=== PATIENT | male | born 1980 | race Caucasian/White ===

== ENCOUNTER 2022-09-20 01:22 | Inpatient (IN) | payer MEDICARE, MEDICAID, SELFPAY ==
[2022-09-20 05:07] VITALS: BMI 25.0
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
[2022-09-20 08:00] VITALS: BP 106/65; PULSE 62; TEMP 36.8; O2SAT 97
[2022-09-20] MEDS: Benztropine Mesylate 1 MG TABLET PO ×2 (11:32→20:59)
[2022-09-20] MEDS: Divalproex Sodium 500 MG TABLET.DR PO ×2 (11:32→21:00)
[2022-09-20] MEDS: risperiDONE 1 MG TABLET PO ×2 (11:32→20:59)
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
[2022-09-20] MEDS: Acetaminophen 325 MG TABLET 650 MG PO (12:41)
[2022-09-20 18:00] VITALS: BP 118/78; PULSE 67; TEMP 36.7; O2SAT 100
[2022-09-20] MEDS: hydrOXYzine HCL 25 MG TABLET PO (18:19)
[2022-09-21] MEDS: hydrOXYzine HCL 25 MG TABLET PO ×3 (02:14→19:06)
[2022-09-21] MEDS: Acetaminophen 325 MG TABLET 650 MG PO ×2 (02:14→12:17)
[2022-09-21 08:31] VITALS: BP 97/64; PULSE 54; RESP 18; TEMP 36.6; O2SAT 97
[2022-09-21] MEDS: Benztropine Mesylate 1 MG TABLET PO ×2 (08:34→20:42)
[2022-09-21] MEDS: risperiDONE 1 MG TABLET PO ×2 (08:34→20:42)
[2022-09-21] MEDS: Divalproex Sodium 500 MG TABLET.DR PO ×2 (08:34→20:42)
--- NOTE | 2022-09-21 12:25 | P.PNPSI_ITS ---
Subjective Subjective Date of Service: 09/21/22 Reason For Visit: Schizophrenia Interim History: Patient seen and discussed. He continues to complain of AH with comand to hurt himself and others who he believes are a threat to him. He denies intent and says he would ask for help if he feels overwhelmed by the voices. He is compliant with medications. No side effects. Medication Compliance: Yes Side effects from medications: No Review of Systems Acute medical concerns: No Medical Review of Systems: unchanged Review of Systems Review of Systems Patient has no acute medical complaints Yes all other systems are reviewed and are negative Mental Status Exam Mental Status Exam Patient Appearance: Disheveled Patient Orientation: Person, Place, Time and Situation Level of Consciousness: Awake and Alert Patient Behavior: Appropriate, Cooperative, Passive and Suspicious Mood Description: Suspicious, Anxious and Blunted Affect Description: Withdrawn and Blunted Ability to Follow Directions: Good Speech Pattern: Soft-Spoken Memory Description: Normal for Patient Hallucinations: Auditory Delusions: Paranoid Ideation Thought Process: Illogical Thought Content: positive for Preoccupation Depressive Symptoms: Increased Anxiety Judgement: Fair Diagnostics Vital Signs (24Hr): Vital Signs - 24 hr 09/21/22 08:31 09/21/22 16:10 Temperature 97.8 F 98.0 F Pulse Rate 54 49 L Respiratory Rate 18 Blood Pressure 97/64 124/79 Pulse Oximetry 97 99 Oxygen Delivery Method Room Air BMI result Body Mass Index 25.0 Medications Medications Current Medications Acetaminophen (Acetaminophen 325 Mg Tablet) 650 mg PO Q6H PRN PRN Reason: Headache/Pain Mild Scale (1-3) Last Admin: 09/21/22 12:17 Dose: 650 mg Al Hydroxide/Mg Hydroxide (Magnesium Hydrox/Alum Hydrox 30 Ml Oral.Susp) 30 ml PO Q6H PRN PRN Reason: Heartburn/Nausea Benztropine Mesylate (Benztropine Mesylate 1 Mg Tablet) 1 mg PO BID [facility] Last Admin: 09/21/22 20:42 Dose: 1 mg Divalproex Sodium (Divalproex Sodium 500 Mg Tablet.Dr) 500 mg PO BID [facility] Last Admin: 09/21/22 20:42 Dose: 500 mg Haloperidol (Haloperidol 5 Mg Tablet) 5 mg PO TID PRN PRN Reason: psychosis Last Admin: 09/21/22 19:58 Dose: 5 mg Hydroxyzine HCl (Hydroxyzine Hcl 25 Mg Tablet) 25 mg PO Q6H PRN PRN Reason: Anxiety Last Admin: 09/21/22 19:06 Dose: 25 mg Magnesium Hydroxide (Milk Of Magnesia 30 Ml Oral.Susp) 30 ml PO DAILY PRN PRN Reason: Constipation Nicotine (Nicotine 21 Mg Patch.Td24) 21 mg TRANSDERMA DAILY [facility] Last Admin: 09/21/22 08:34 Dose: Not Given Nicotine Polacrilex (Nicotine Polacrilex 2 Mg Gum) 4 mg BUCCAL Q2H PRN PRN Reason: Nicotine Cravings Nicotine Polacrilex (Nicotine Polacrilex 2 Mg Gum) 2 mg BUCCAL Q2H PRN PRN Reason: Nicotine Cravings Risperidone (Risperidone 1 Mg Tablet) 1 mg PO BID [facility] Last Admin: 09/21/22 20:42 Dose: 1 mg Trazodone HCl (Trazodone Hcl 50 Mg Tablet) 50 mg PO BEDTIME MRX1 PRN PRN Reason: Insomnia Allergies Allergies Allergy/AdvReac Type Severity Reaction Status Date / Time No Known Allergies Allergy Verified 09/20/22 01:31 Assessment & Plan Assessment & Plan (1) Schizoaffective disorder: Status: Acute Code(s): F25.9 - Schizoaffective disorder, unspecified (2) Cocaine use disorder: Status: Acute Code(s): F14.10 - Cocaine abuse, uncomplicated (3) Routine history and physical examination of adult: Status: Acute Code(s): Z00.00 - Encounter for general adult medical examination without abnormal findings Plan Admit to on CV Collateral information. Enciurage milieu treatment. Disposition planning. Restart medications and assess for effectiveness. 09/21: Added Haldol PRN hallucinations. Reason for contiued inpatient stay Substantial Risk for: harm to self, harm to others, inability to function and rapid decompensation Time Spent With Patient Time: Total time managing care of this patient today ____ minutes.
--- NOTE | 2022-09-21 14:46 | P.CONHOSP_ITS ---
History of Present Illness Data of Consult Service Date: 09/21/22 Primary Care Provider: None Physician HPI Reason for consult: Admission H&P Pt is a 41-year-old male with a PMH significant for polysubstance use disorder, schizoaffective disorder, and depression who is seen today for an admission history and physical to M5 unit. Pt denies any acute medical complaint at this time. No chest pain/pressure, palpitations. Denies shortness of breath. No fever, chills, nausea, vomiting, abdominal pain. No headache, changes to vision, numbness or tingling extremities. Review of Systems Review of Systems: Patient has no acute medical complaints Yes all other systems are reviewed and are negative [facility] Medical History Gallstones Social History Household Members: None Housing: Homeless Do you presently have visiting nurse or other home services: No Patient Tobacco Use Status: Current everyday Tobacco user Tobacco use type: Cigarette Smoked in Last 30 Days: Yes e-Cigarette/Vaping Use: Never Used Patient Interested in Nicotine Replacement: Yes Patient Given Instructions on How to Stop Smoking: Yes Date Education Initiated: 09/20/22 Second Hand Smoke Exposure: No Use of substances other than those prescribed or required for medical reasons: Yes Substance Use Type: Crack/Cocaine Substance Use Frequency: Daily Last Used Substance: Just Prior to Admission Currently Displaying Signs/Symptoms of Drug Intoxication Withdrawal: No Any prior treatment program specific to substance use: No Do you feel safe in your current relationship?: No Current Relationship Is there a partner from a previous relationship who is making you feel unsafe now?: No Are you made to feel afraid or neglected: No Advance Directives: No Advance Directives Information Provided: No Do you have thoughts of harming others: None Do you have a plan to hurt others: No Plan Recently lost weight without trying: No Eating poorly because of decreased appetite: No Nutrition Risks: No Nutritional Risk Poor oral hygiene: No Meds Allergies Allergy/AdvReac Type Severity Reaction Status Date / Time No Known Allergies Allergy Verified 09/20/22 01:31 Active Medications: Current Medications Acetaminophen (Acetaminophen 325 Mg Tablet) 650 mg PO Q6H PRN PRN Reason: Headache/Pain Mild Scale (1-3) Last Admin: 09/21/22 12:17 Dose: 650 mg Al Hydroxide/Mg Hydroxide (Magnesium Hydrox/Alum Hydrox 30 Ml Oral.Susp) 30 ml PO Q6H PRN PRN Reason: Heartburn/Nausea Benztropine Mesylate (Benztropine Mesylate 1 Mg Tablet) 1 mg PO BID COUNTS INCLUDE 234 BEDS AT [facility] Last Admin: 09/21/22 08:34 Dose: 1 mg Divalproex Sodium (Divalproex Sodium 500 Mg Tablet.Dr) 500 mg PO BID COUNTS INCLUDE 234 BEDS AT THE [facility] Last Admin: 09/21/22 08:34 Dose: 500 mg Hydroxyzine HCl (Hydroxyzine Hcl 25 Mg Tablet) 25 mg PO Q6H PRN PRN Reason: Anxiety Last Admin: 09/21/22 12:17 Dose: 25 mg Magnesium Hydroxide (Milk Of Magnesia 30 Ml Oral.Susp) 30 ml PO DAILY PRN PRN Reason: Constipation Nicotine (Nicotine 21 Mg Patch.Td24) 21 mg TRANSDERMA DAILY COUNTS INCLUDE 234 BEDS AT THE [facility] Last Admin: 09/21/22 08:34 Dose: Not Given Nicotine Polacrilex (Nicotine Polacrilex 2 Mg Gum) 4 mg BUCCAL Q2H PRN PRN Reason: Nicotine Cravings Nicotine Polacrilex (Nicotine Polacrilex 2 Mg Gum) 2 mg BUCCAL Q2H PRN PRN Reason: Nicotine Cravings Risperidone (Risperidone 1 Mg Tablet) 1 mg PO BID COUNTS INCLUDE 234 BEDS AT THE [facility] Last Admin: 09/21/22 08:34 Dose: 1 mg Trazodone HCl (Trazodone Hcl 50 Mg Tablet) 50 mg PO BEDTIME MRX1 PRN PRN Reason: Insomnia Home Medications Medication Instructions Recorded Confirmed Last Taken Type benztropine 1 mg tablet 1 mg PO BID 09/20/22 09/20/22 09/19/22 History divalproex 500 mg tablet,delayed 500 mg PO BID 09/20/22 09/20/22 09/19/22 History release nicotine (polacrilex) 4 mg gum 4 mg buccal Q2H PRN Nicotine 09/20/22 09/20/22 Unknown History Cravings nicotine 21 mg/24 hr daily 1 patch transdermal DAILY 09/20/22 09/20/22 Unknown History transdermal patch risperidone 1 mg tablet 1 mg PO BEDTIME 09/20/22 09/20/22 09/19/22 History Physical Exam Vital Signs and Narrative: Vital Signs: Last Vital Signs Temp 97.8 F 09/21/22 08:31 Pulse 54 09/21/22 08:31 Resp 18 09/21/22 08:31 BP 97/64 09/21/22 08:31 Pulse Ox 97 09/21/22 08:31 O2 Del Method 09/20/22 18:00 BMI result Body Mass Index 25.0 General: AOx3, no acute distress Resp: CTA bilaterally CVS: S1, S2, RRR GI: +BS, NT, no distention Skin: No rash Neuro: Cranial nerves II-XII grossly intact bilaterally. Motor grossly intact bilaterally Extremities: No edema Psych: Appropriate affect Assessment and Plan (1) Routine history and physical examination of adult: Status: Acute Plan Pt is a 41-year-old male with a PMH significant for polysubstance use disorder, schizoaffective disorder, and depression who is seen today for an admission history and physical to M5 unit. Pt denies any acute medical complaint at this time. Mental health Plan as per psychiatry team Thank you for allowing us to participate in the care of this patient. Signing off at this time. Please contact us again if there are any acute questions or concerns. Time Spent With Patient Time: Total time managing care of this patient today ____ minutes.
[2022-09-21 16:10] VITALS: BP 124/79; PULSE 49; TEMP 36.7; O2SAT 99
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
[2022-09-21] MEDS: HaloperidoL 5 MG TABLET PO (19:58)
[2022-09-22 09:34] VITALS: BP 92/53; PULSE 56; RESP 16; TEMP 36.4; O2SAT 99
[2022-09-22] MEDS: Benztropine Mesylate 1 MG TABLET PO ×2 (09:55→22:27)
[2022-09-22] MEDS: Divalproex Sodium 500 MG TABLET.DR PO ×2 (09:55→22:27)
[2022-09-22] MEDS: risperiDONE 1 MG TABLET PO (09:55)
--- NOTE | 2022-09-22 10:35 | P.PNPSI_ITS ---
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 He says psychiatric medication can help and shares that on Haldol dec, Risperdal and Depakote auditory hallucinations nearly resolve. Patient says he got Haldol deck a week ago. He says he ends up getting off medications because he relapses and is homeless making it hard to follow-up. Patient says he would like to get into a CSS for crack cocaine use. Currently he denies any SI or HI and paranoid thinking is lessening. He says the voices remain but are getting better with Risperdal. He asks for to be increased to his home dose of 2 mg b.i.d. Mental Status Exam Mental Status Exam Narrative: Pt is alert and oriented; behavior is cooperative, friendly and calm; patient is not in distress; dressed in casual attire with unkempt hair and marginal hygiene; mood is described as ok and affect congruent, somewhat blank; eye contact appropriate; Speech is normal rate, volume and prosody and not pressured; possibly mild speech impediment present; some psychomotor retardation present; thought process is organized and goal directed; Thought content is on dealing with AH, symptoms and aftercare; otherwise pertinent to relevant topics and with some remaining but attenuated paranoid ideations; denies any SI/HI. AH remains but lessening. Patients insight and judgment impaired but improving. Diagnostics Vital Signs (24Hr): Vital Signs - 24 hr 09/21/22 16:10 09/22/22 09:34 Temperature 98.0 F 97.6 F Pulse Rate 49 L 56 Respiratory Rate 16 Blood Pressure 124/79 92/53 L Pulse Oximetry 99 99 Oxygen Delivery Method Room Air Room Air BMI result Body Mass Index 25.0 Medications Medications Current Medications Acetaminophen (Acetaminophen 325 Mg Tablet) 650 mg PO Q6H PRN PRN Reason: Headache/Pain Mild Scale (1-3) Last Admin: 09/21/22 12:17 Dose: 650 mg Al Hydroxide/Mg Hydroxide (Magnesium Hydrox/Alum Hydrox 30 Ml Oral.Susp) 30 ml PO Q6H PRN PRN Reason: Heartburn/Nausea Benztropine Mesylate (Benztropine Mesylate 1 Mg Tablet) 1 mg PO BID [facility] Last Admin: 09/22/22 09:55 Dose: 1 mg Divalproex Sodium (Divalproex Sodium 500 Mg Tablet.Dr) 500 mg PO BID [facility] Last Admin: 09/22/22 09:55 Dose: 500 mg Haloperidol (Haloperidol 5 Mg Tablet) 5 mg PO TID PRN PRN Reason: psychosis Last Admin: 09/21/22 19:58 Dose: 5 mg Hydroxyzine HCl (Hydroxyzine Hcl 25 Mg Tablet) 25 mg PO Q6H PRN PRN Reason: Anxiety Last Admin: 09/21/22 19:06 Dose: 25 mg Magnesium Hydroxide (Milk Of Magnesia 30 Ml Oral.Susp) 30 ml PO DAILY PRN PRN Reason: Constipation Nicotine (Nicotine 21 Mg Patch.Td24) 21 mg TRANSDERMA DAILY [facility] Last Admin: 09/22/22 09:55 Dose: Not Given Nicotine Polacrilex (Nicotine Polacrilex 2 Mg Gum) 4 mg BUCCAL Q2H PRN PRN Reason: Nicotine Cravings Nicotine Polacrilex (Nicotine Polacrilex 2 Mg Gum) 2 mg BUCCAL Q2H PRN PRN Reason: Nicotine Cravings Risperidone (Risperidone 1 Mg Tablet) 1 mg PO BID [facility] Last Admin: 09/22/22 09:55 Dose: 1 mg Trazodone HCl (Trazodone Hcl 50 Mg Tablet) 50 mg PO BEDTIME MRX1 PRN PRN Reason: Insomnia Allergies Allergies Allergy/AdvReac Type Severity Reaction Status Date / Time No Known Allergies Allergy Verified 09/20/22 01:31 Assessment & Plan Assessment & Plan (1) Schizoaffective disorder: Status: Acute Code(s): F25.9 - Schizoaffective disorder, unspecified (2) Cocaine use disorder: Status: Acute Code(s): F14.10 - Cocaine abuse, uncomplicated (3) Routine history and physical examination of adult: Status: Acute Code(s): Z00.00 - Encounter for general adult medical examination without abnormal findings Plan Patient is a 41-year-old man with history of schizophrenia and crack cocaine addiction presents for paranoid ideations and auditory hallucinations in the face of relapse and, off medications Hospital course: 09/21: Added Haldol PRN hallucinations. 09/22 patient reports that now having started Risperdal and Depakote, auditory hallucinations and paranoid thinking is lessening; he says he has been most stable on Haldol dec, Risperdal 2 mg b.i.d. and Depakote 500 mg b.i.d.. Patient asking for CSS PLAN: CV q15 min checks Increased Risperal 2mg BID (does not want [place]) continue Depakote 500mg BID -will get labs Continue congentin 1mg BID (says he needs this dose) Haldol Dec 100mg qmonth spread out over 2-3 days (last received 09/16/22) clonidine 0.1mg Q4h prn anxiety increased hydrozyzine to 50mg prn Continue to monitor and apply medication management Social work to help with dispo planning, possible CSS Patient educated on: diagnosis, medication risk/benefits, substance abuse and therapeutic strategies Informed Consent: understands Reason for contiued inpatient stay Substantial Risk for: rapid decompensation Time Spent With Patient Time: Total time managing care of this patient today ____ minutes.
[2022-09-22] MEDS: hydrOXYzine HCL 25 MG TABLET PO (13:51)
[2022-09-22] MEDS: cloNIDine HCL 0.1 MG TABLET PO (16:40)
[2022-09-22 16:41] VITALS: BP 114/72; PULSE 64; TEMP 36.2; O2SAT 99
[2022-09-22] MEDS: risperiDONE 2 MG TABLET PO (22:27)
[2022-09-23 08:22] VITALS: BP 114/64; PULSE 55; RESP 16; TEMP 36.8; O2SAT 97
[2022-09-23] MEDS: Benztropine Mesylate 1 MG TABLET PO ×2 (08:41→20:27)
[2022-09-23] MEDS: risperiDONE 2 MG TABLET PO ×2 (08:41→20:27)
[2022-09-23] MEDS: Divalproex Sodium 500 MG TABLET.DR PO ×2 (08:41→20:28)
[2022-09-23 08:52] LABS: Valproate 47.7 mcg/mL (50.0-100.0)
[2022-09-23 08:55] LABS: Alanine Aminotransferase 31 U/L (0-40); Albumin Level 3.5 g/dL (3.5-5.0); Alkaline Phosphatase 37 U/L (39-117); Ammonia 51 umol/L (13-55); Aspartate Amino Transferase 17 U/L (5-37); Bilirubin Direct 0.2 mg/dL (0.0-0.5); Bilirubin Total 0.4 mg/dL (0.0-1.0); Total Protein 5.9 g/dL (6.5-8.0)
--- NOTE | 2022-09-23 10:39 | P.PNPSI_ITS ---
Subjective Subjective Date of Service: 09/23/22 Reason For Visit: Schizophrenia Interim History: met with patient; discussed in teams; reviewed notes/Labs from [facility] ED pt says he's doing a little better; AH remain but remain lessened. However he still feels depressed but not much SI. He says HI lingers but much less; he denies it's directed at anyone specific and implies it's from [facility], but he's vague about it. Pt says he's tolerating increase in med dosing and that while it was hard to fall asleep, once he did, he slept better. Mental Status Exam Mental Status Exam Narrative: Pt is alert and oriented; behavior is cooperative, friendly and calm; patient is not in distress; dressed in casual attire with unkempt hair and marginal hygiene; mood is described as ok and affect congruent, somewhat blank; eye contact appropriate; Speech is normal rate, volume and prosody and not pressured; possibly mild speech impediment present; some psychomotor retardation present; thought process is organized and goal directed; Thought content is on dealing with AH, symptoms and aftercare; otherwise pertinent to relevant topics and with some remaining but attenuated paranoid ideations; denies any SI/HI. AH remains but lessening. Remains internally preoccupied. Patients insight and judgment impaired but improving. Diagnostics Vital Signs (24Hr): Vital Signs - 24 hr 09/22/22 16:41 09/23/22 08:22 Temperature 97.2 F 98.3 F Pulse Rate 64 55 Respiratory Rate 16 Blood Pressure 114/72 114/64 Pulse Oximetry 99 97 Oxygen Delivery Method Room Air Room Air BMI result Body Mass Index 25.0 Labs Labs: Laboratory Results - last 48 hr 09/23/22 09/23/22 09/23/22 08:24 08:24 08:24 Total Bilirubin 0.4 Direct Bilirubin 0.2 AST 17 ALT 31 Alkaline Phosphatase 37 L Ammonia 51 Total Protein 5.9 L Albumin 3.5 Valproic Acid 47.7 L Medications Medications Current Medications Acetaminophen (Acetaminophen 325 Mg Tablet) 650 mg PO Q6H PRN PRN Reason: Headache/Pain Mild Scale (1-3) Last Admin: 09/21/22 12:17 Dose: 650 mg Al Hydroxide/Mg Hydroxide (Magnesium Hydrox/Alum Hydrox 30 Ml Oral.Susp) 30 ml PO Q6H PRN PRN Reason: Heartburn/Nausea Benztropine Mesylate (Benztropine Mesylate 1 Mg Tablet) 1 mg PO BID [facility] Last Admin: 09/23/22 08:41 Dose: 1 mg Clonidine HCl (Clonidine Hcl 0.1 Mg Tablet) 0.1 mg PO Q4H PRN; Protocol PRN Reason: anxiety Last Admin: 09/22/22 16:40 Dose: 0.1 mg Divalproex Sodium (Divalproex Sodium 500 Mg Tablet.Dr) 500 mg PO BID [facility] Last Admin: 09/23/22 08:41 Dose: 500 mg Haloperidol (Haloperidol 5 Mg Tablet) 5 mg PO TID PRN PRN Reason: psychosis Last Admin: 09/21/22 19:58 Dose: 5 mg Hydroxyzine HCl (Hydroxyzine Hcl 50 Mg Tablet) 50 mg PO Q6H PRN PRN Reason: Anxiety Magnesium Hydroxide (Milk Of Magnesia 30 Ml Oral.Susp) 30 ml PO DAILY PRN PRN Reason: Constipation Nicotine (Nicotine 21 Mg Patch.Td24) 21 mg TRANSDERMA DAILY [facility] Last Admin: 09/23/22 08:41 Dose: Not Given Nicotine Polacrilex (Nicotine Polacrilex 2 Mg Gum) 4 mg BUCCAL Q2H PRN PRN Reason: Nicotine Cravings Nicotine Polacrilex (Nicotine Polacrilex 2 Mg Gum) 2 mg BUCCAL Q2H PRN PRN Reason: Nicotine Cravings Risperidone (Risperidone 2 Mg Tablet) 2 mg PO BID [facility] Last Admin: 09/23/22 08:41 Dose: 2 mg Trazodone HCl (Trazodone Hcl 50 Mg Tablet) 50 mg PO BEDTIME MRX1 PRN PRN Reason: Insomnia Allergies Allergies Allergy/AdvReac Type Severity Reaction Status Date / Time No Known Allergies Allergy Verified 09/20/22 01:31 Assessment & Plan Assessment & Plan (1) Schizoaffective disorder: Status: Acute Code(s): F25.9 - Schizoaffective disorder, unspecified (2) Cocaine use disorder: Status: Acute Code(s): F14.10 - Cocaine abuse, uncomplicated (3) Routine history and physical examination of adult: Status: Acute Code(s): Z00.00 - Encounter for general adult medical examination without abnormal findings Plan Patient is a 41-year-old man with history of schizophrenia and crack cocaine addiction presents for paranoid ideations and auditory hallucinations in the face of relapse and, off medications Hospital course: 09/21: Added Haldol PRN hallucinations. 09/22 patient reports that now having started Risperdal and Depakote, auditory hallucinations and paranoid thinking is lessening; he says he has been most stable on Haldol dec, Risperdal 2 mg b.i.d. and Depakote 500 mg b.i.d.. Patient asking for CSS 09/23 patient remains with psychotic symptoms but SI and HI, mostly just due to command auditory hallucinations are lessening. PLAN: CV q15 min checks Increased Risperal 2mg BID (does not want SPRAGUE) continue Depakote 500mg BID -will get labs Continue congentin 1mg BID (says he needs this dose) Haldol Dec 100mg qmonth spread out over 2-3 days (last received 09/16/22) clonidine 0.1mg Q4h prn anxiety increased hydrozyzine to 50mg prn Continue to monitor and apply medication management Social work to help with dispo planning, possible CSS Patient educated on: diagnosis and medication risk/benefits Informed Consent: understands and further education needed Reason for contiued inpatient stay Substantial Risk for: rapid decompensation Time Spent With Patient Time: Total time managing care of this patient today ____ minutes.
[2022-09-23] MEDS: cloNIDine HCL 0.1 MG TABLET PO (13:39)
[2022-09-23 16:18] VITALS: BP 103/57; PULSE 56; TEMP 36.6; O2SAT 99
[2022-09-23] MEDS: HaloperidoL 5 MG TABLET PO (18:51)
[2022-09-24 08:16] VITALS: BP 108/71; PULSE 62; RESP 16; TEMP 36.7; O2SAT 98
[2022-09-24] MEDS: risperiDONE 2 MG TABLET PO ×2 (08:25→19:41)
[2022-09-24] MEDS: Divalproex Sodium 500 MG TABLET.DR PO ×2 (08:25→19:41)
[2022-09-24] MEDS: Benztropine Mesylate 1 MG TABLET PO ×2 (08:25→19:41)
[2022-09-24] MEDS: cloNIDine HCL 0.1 MG TABLET PO ×2 (09:51→19:42)
[2022-09-24 09:54] VITALS: BP 106/61
[2022-09-24] MEDS: hydrOXYzine HCL 50 MG TABLET PO (13:29)
[2022-09-24 17:03] VITALS: BP 118/73; PULSE 59; RESP 16; TEMP 36.6; O2SAT 100
--- NOTE | 2022-09-24 18:21 | HO.PSYCHPN ---
Subjective Subjective Date of Service: 09/24/22 Reason For Visit: Schizophrenia Interim History: Met with patient; discussed in teams Patient reports that the auditory hallucinations are still there but they continue to get better. He says usually takes about a week for them to resolve. Discussed medication management further and patient agrees to long-acting injectable of Invega Sustenna; discussed risks of being on 2 antipsychotics however he accepts that he has been on to which makes him stable and agrees to continue doing so. Patient said SI and HI are really just due to command auditory hallucinations which he says at this point are only annoying. He denies any intent or plans. Discussed aftercare options and patient said that he really rather not go to a CSS and prefers to go back to his correction and get treatment there, feeling well cared for by staff. Mental Status Exam Mental Status Exam Narrative: Pt is alert and oriented; behavior is cooperative, friendly and calm; patient is not in distress; dressed in casual attire with unkempt hair and marginal hygiene; mood is described as ok and affect congruent, more natural expressive; eye contact appropriate; Speech is normal rate, volume and prosody and not pressured; possibly mild speech impediment present; no psychomotor present; thought process is organized and goal directed; Thought content is on dealing with AH, symptoms and aftercare; otherwise pertinent to relevant topics and with some remaining but attenuated paranoid ideations; denies any SI/HI. AH remains but lessening. Remains internally preoccupied. Patients insight and judgment are fair. Diagnostics Vital Signs (24Hr): Vital Signs - 24 hr 09/24/22 08:16 09/24/22 09:54 09/24/22 17:03 Temperature 98.0 F 97.8 F Pulse Rate 62 59 Respiratory Rate 16 16 Blood Pressure 108/71 106/61 118/73 Pulse Oximetry 98 100 Oxygen Delivery Method Room Air Room Air BMI result Body Mass Index 25.0 Labs Labs: Laboratory Results - last 48 hr 09/23/22 09/23/22 09/23/22 08:24 08:24 08:24 Total Bilirubin 0.4 Direct Bilirubin 0.2 AST 17 ALT 31 Alkaline Phosphatase 37 L Ammonia 51 Total Protein 5.9 L Albumin 3.5 Valproic Acid 47.7 L Medications Medications Current Medications Acetaminophen (Acetaminophen 325 Mg Tablet) 650 mg PO Q6H PRN PRN Reason: Headache/Pain Mild Scale (1-3) Last Admin: 09/21/22 12:17 Dose: 650 mg Al Hydroxide/Mg Hydroxide (Magnesium Hydrox/Alum Hydrox 30 Ml Oral.Susp) 30 ml PO Q6H PRN PRN Reason: Heartburn/Nausea Benztropine Mesylate (Benztropine Mesylate 1 Mg Tablet) 1 mg PO BID [facility] Last Admin: 09/24/22 08:25 Dose: 1 mg Clonidine HCl (Clonidine Hcl 0.1 Mg Tablet) 0.1 mg PO Q4H PRN; Protocol PRN Reason: anxiety Last Admin: 09/24/22 09:51 Dose: 0.1 mg Divalproex Sodium (Divalproex Sodium 500 Mg Tablet.Dr) 500 mg PO BID [facility] Last Admin: 09/24/22 08:25 Dose: 500 mg Haloperidol (Haloperidol 5 Mg Tablet) 5 mg PO TID PRN PRN Reason: psychosis Last Admin: 09/23/22 18:51 Dose: 5 mg Hydroxyzine HCl (Hydroxyzine Hcl 50 Mg Tablet) 50 mg PO Q6H PRN PRN Reason: Anxiety Last Admin: 09/24/22 13:29 Dose: 50 mg Magnesium Hydroxide (Milk Of Magnesia 30 Ml Oral.Susp) 30 ml PO DAILY PRN PRN Reason: Constipation Nicotine (Nicotine 21 Mg Patch.Td24) 21 mg TRANSDERMA DAILY [facility] Last Admin: 09/24/22 09:12 Dose: Not Given Nicotine Polacrilex (Nicotine Polacrilex 2 Mg Gum) 4 mg BUCCAL Q2H PRN PRN Reason: Nicotine Cravings Nicotine Polacrilex (Nicotine Polacrilex 2 Mg Gum) 2 mg BUCCAL Q2H PRN PRN Reason: Nicotine Cravings Risperidone (Risperidone 2 Mg Tablet) 2 mg PO BID [facility] Last Admin: 09/24/22 08:25 Dose: 2 mg Trazodone HCl (Trazodone Hcl 50 Mg Tablet) 50 mg PO BEDTIME MRX1 PRN PRN Reason: Insomnia Allergies Allergies Allergy/AdvReac Type Severity Reaction Status Date / Time No Known Allergies Allergy Verified 09/20/22 01:31 Assessment & Plan Assessment & Plan (1) Schizoaffective disorder: Status: Acute Code(s): F25.9 - Schizoaffective disorder, unspecified (2) Cocaine use disorder: Status: Acute Code(s): F14.10 - Cocaine abuse, uncomplicated (3) Routine history and physical examination of adult: Status: Acute Code(s): Z00.00 - Encounter for general adult medical examination without abnormal findings Plan Patient is a 41-year-old man with history of schizophrenia and crack cocaine addiction presents for paranoid ideations and auditory hallucinations in the face of relapse and, off medications Hospital course: 09/21: Added Haldol PRN hallucinations. 09/22 patient reports that now having started Risperdal and Depakote, auditory hallucinations and paranoid thinking is lessening; he says he has been most stable on Haldol dec, Risperdal 2 mg b.i.d. and Depakote 500 mg b.i.d.. Patient asking for CSS 09/23 patient remains with psychotic symptoms but SI and HI, mostly just due to command auditory hallucinations are lessening. 09/24 patient continues to have symptoms but is says again there lessening and have reduced just to an annoying level; he denies any SI or HI. He agrees to long-acting injectable of Invega Sustenna, saying he did understand about it earlier; patient said he would like to go back to a correction since he likes the staff there is; he volunteers that is already signed up for [facility]. Patient is progressing back to baseline. He is back on his medications including long-acting injectable which will significantly increase adherence. Patient remains with good behavior and impulse control appropriate with peers and staff. He approaching baseline and If he remains stable will proceed with discharge planning. PLAN: CV q15 min checks START Invega Sustenna 234 mg 1 time dose on to Continue Haldol Decanoate 100 mg Q monthly in divided doses over 2 day.) Risperal 2mg BID continue Depakote 500mg BID -will get labs Continue congentin 1mg BID (says he needs this dose) Haldol Dec 100mg qmonth spread out over 2-3 days (last received 09/16/22) clonidine 0.1mg Q4h prn anxiety increased hydrozyzine to 50mg prn Continue to monitor and apply medication management Social work to help with dispo planning, back to correction Patient educated on: diagnosis and medication risk/benefits Informed Consent: understands and further education needed Reason for contiued inpatient stay Substantial Risk for: rapid decompensation and med/psych decompensation Time Spent With Patient Time: Total time managing care of this patient today ____ minutes.
[2022-09-24 19:40] VITALS: BP 122/74; PULSE 66
[2022-09-25] MEDS: Divalproex Sodium 500 MG TABLET.DR PO ×2 (08:36→20:35)
[2022-09-25] MEDS: risperiDONE 2 MG TABLET PO ×2 (08:37→20:35)
[2022-09-25] MEDS: Benztropine Mesylate 1 MG TABLET PO ×2 (08:37→20:35)
[2022-09-25 09:05] VITALS: BP 102/62; PULSE 68; RESP 18; TEMP 36.9; O2SAT 98
[2022-09-25] MEDS: Paliperidone Palmitate 234 MG/1.5 ML SYRINGE IM (12:48)
--- NOTE | 2022-09-25 15:35 | HO.PSYCHPN ---
Subjective Subjective Date of Service: 09/25/22 Reason For Visit: Schizophrenia Interim History: Met with patient; discussed in teams Patient with noticeably brighter affect and more naturally expressive; patient is out and about more in the milieu, interacting appropriately with peers and staff and demonstrating good behavioral and impulse control.. He reports continued auditory hallucinations but they remain significantly lowered and more able to be ignored. No SI or HI. Mood is better. Patient appreciative of long-acting injectable Invega Sustenna since he struggles with relapse and remaining adherent with medications hoping this will make his stability more long-lasting. Patient and song writer reviewed all medications and patient ask questions and agrees to continue regimen; song writer shared that because patient has been getting his Haldol Decanoate at different hospitals, it is unclear what consistent monthly dose he gets but that this can be worked out as an outpatient.. Patient is more hopeful and feels confident and staff at the longterm and with [facility]; he shares that he is on schedule to get his own apartment in a few months as well. Patient expresses gratitude for help received on the unit. Mental Status Exam Mental Status Exam Narrative: Pt is alert and oriented; behavior is cooperative, friendly and calm; patient is not in distress; dressed in casual attire, well groomed, clean shaven, good hygiene; mood is described as ok and affect congruent, more natural expressive; eye contact appropriate; Speech is normal rate, volume and prosody and not pressured; possibly mild speech impediment present; no psychomotor retardation present; thought process is organized and goal directed; Thought content is on dealing with AH, symptoms and aftercare; otherwise pertinent to relevant topics and and no paranoid ideations; denies any SI/HI. AH remains but lessening and tolerable and it is no longer obvious if pt is internally pre-occupied. Patients insight and judgment are fair. Diagnostics Vital Signs (24Hr): Vital Signs - 24 hr 09/24/22 17:03 09/24/22 19:40 09/25/22 09:05 Temperature 97.8 F 98.4 F Pulse Rate 59 66 68 Respiratory Rate 16 18 Blood Pressure 118/73 122/74 102/62 Pulse Oximetry 100 98 Oxygen Delivery Method Room Air Room Air BMI result Body Mass Index 25.0 Medications Medications Current Medications Acetaminophen (Acetaminophen 325 Mg Tablet) 650 mg PO Q6H PRN PRN Reason: Headache/Pain Mild Scale (1-3) Last Admin: 09/21/22 12:17 Dose: 650 mg Al Hydroxide/Mg Hydroxide (Magnesium Hydrox/Alum Hydrox 30 Ml Oral.Susp) 30 ml PO Q6H PRN PRN Reason: Heartburn/Nausea Benztropine Mesylate (Benztropine Mesylate 1 Mg Tablet) 1 mg PO BID [facility] Last Admin: 09/25/22 08:37 Dose: 1 mg Clonidine HCl (Clonidine Hcl 0.1 Mg Tablet) 0.1 mg PO Q4H PRN; Protocol PRN Reason: anxiety Last Admin: 09/24/22 19:42 Dose: 0.1 mg Divalproex Sodium (Divalproex Sodium 500 Mg Tablet.Dr) 500 mg PO BID [facility] Last Admin: 09/25/22 08:36 Dose: 500 mg Haloperidol (Haloperidol 5 Mg Tablet) 5 mg PO TID PRN PRN Reason: psychosis Last Admin: 09/23/22 18:51 Dose: 5 mg Hydroxyzine HCl (Hydroxyzine Hcl 50 Mg Tablet) 50 mg PO Q6H PRN PRN Reason: Anxiety Last Admin: 09/24/22 13:29 Dose: 50 mg Magnesium Hydroxide (Milk Of Magnesia 30 Ml Oral.Susp) 30 ml PO DAILY PRN PRN Reason: Constipation Nicotine (Nicotine 21 Mg Patch.Td24) 21 mg TRANSDERMA DAILY [facility] Last Admin: 09/25/22 08:57 Dose: Not Given Nicotine Polacrilex (Nicotine Polacrilex 2 Mg Gum) 4 mg BUCCAL Q2H PRN PRN Reason: Nicotine Cravings Nicotine Polacrilex (Nicotine Polacrilex 2 Mg Gum) 2 mg BUCCAL Q2H PRN PRN Reason: Nicotine Cravings Risperidone (Risperidone 2 Mg Tablet) 2 mg PO BID [facility] Last Admin: 09/25/22 08:37 Dose: 2 mg Trazodone HCl (Trazodone Hcl 50 Mg Tablet) 50 mg PO BEDTIME MRX1 PRN PRN Reason: Insomnia Allergies Allergies Allergy/AdvReac Type Severity Reaction Status Date / Time No Known Allergies Allergy Verified 09/20/22 01:31 Assessment & Plan Assessment & Plan (1) Schizoaffective disorder: Status: Acute Code(s): F25.9 - Schizoaffective disorder, unspecified (2) Cocaine use disorder: Status: Acute Code(s): F14.10 - Cocaine abuse, uncomplicated (3) Routine history and physical examination of adult: Status: Acute Code(s): Z00.00 - Encounter for general adult medical examination without abnormal findings Plan Patient is a 41-year-old man with history of schizophrenia and crack cocaine addiction presents for paranoid ideations and auditory hallucinations in the face of relapse and, off medications Hospital course: 09/21: Added Haldol PRN hallucinations. 09/22 patient reports that now having started Risperdal and Depakote, auditory hallucinations and paranoid thinking is lessening; he says he has been most stable on Haldol dec, Risperdal 2 mg b.i.d. and Depakote 500 mg b.i.d.. Patient asking for CSS 09/23 patient remains with psychotic symptoms but SI and HI, mostly just due to command auditory hallucinations are lessening. 09/24 patient continues to have symptoms but is says again there lessening and have reduced just to an annoying level; he denies any SI or HI. He agrees to long-acting injectable of Invega Sustenna, saying he did understand about it earlier; patient said he would like to go back to a longterm since he likes the staff there is; he volunteers that is already signed up for [facility]. Patient is progressing back to baseline. He is back on his medications including long-acting injectable which will significantly increase adherence. Patient remains with good behavior and impulse control appropriate with peers and staff. He approaching baseline and If he remains stable will proceed with discharge planning. 09/25 Patient with noticeably brighter affect and more naturally expressive; patient is out and about more in the milieu, interacting appropriately with peers and staff and demonstrating good behavioral and impulse control.. He reports continued auditory hallucinations but they remain significantly lowered and more able to be ignored. No SI or HI. Mood is better. Patient appreciative of long-acting injectable Invega Sustenna since he struggles with relapse and remaining adherent with medications hoping this will make his stability more long-lasting. Patient and song writer reviewed all medications and patient ask questions and agrees to continue regimen; song writer shared that because patient has been getting his Haldol Decanoate at different hospitals, it is unclear what consistent monthly dose he gets but that this can be worked out as an outpatient.. Patient is more hopeful and feels confident and staff at the longterm and with [facility]; he shares that he is on schedule to get his own apartment in a few months as well. Patient expresses gratitude for help received on the unit. -patient has been doing well, stable, in good mood, with lessening psychotic symptoms and steadily progressing towards baseline. While AH remain He does not have any SI or HI and he has good insight that AH is simply due to his mind playing tricks on him from psychiatric illness; patient is future oriented and though returning to a longterm, feels well treated and helped by staff there. Patient has remained in good behavioral and impulse control throughout his time in the unit. While he remains vulnerable to relapse and dysregulation, these are chronic issues that will not resolve with longer stay on inpatient unit. He is not in imminent risk for harm to self or others and appropriate to continue treatment in the community. PLAN: CV q15 min checks Received Invega Sustenna 234 mg 1 time dose on 09/25 Next Invega Sustenna dose 156 mg due on 10/02 Continue Haldol Decanoate 100 mg Q monthly in divided doses over 2 day.) Risperal 2mg BID; will dc continue Depakote 500mg BID Continue congentin 1mg BID (says he needs this dose) Haldol Dec 100mg qmonth spread out over 2-3 days (last received 09/16/22) clonidine 0.1mg Q4h prn anxiety increased hydrozyzine to 50mg prn Continue to monitor and apply medication management Social work to help with dispo planning, back to longterm Patient educated on: diagnosis, medication risk/benefits, substance abuse and therapeutic strategies Informed Consent: understands Reason for contiued inpatient stay Substantial Risk for: stable for discharge Time Spent With Patient Time: Total time managing care of this patient today ____ minutes.
[2022-09-25 16:07] VITALS: BP 126/78; PULSE 66; RESP 18; TEMP 36.2; O2SAT 100
[2022-09-25] MEDS: hydrOXYzine HCL 50 MG TABLET PO (20:35)
[2022-09-26 08:00] VITALS: BP 113/67; PULSE 60; RESP 16; TEMP 36.1; O2SAT 98
--- NOTE | 2022-09-26 08:42 | P.DS_ITS ---
DS: Providers Provider Date of Service: 09/26/22 Date of admission: 09/20/22 01:22 Date of discharge: 09/26/22 Primary care physician: None Physician Attending physician on admission: Indra Campbell Consults: 09/20/22 01:38 Consult to Hospitalist Routine Consulting Provider: Hospitalist Reason For Exam: OSH admission Attending physician on discharge: Juan Jose Moreno DS: Diagnosis Discharge Diagnosis (1) Schizoaffective disorder: Status: Acute (2) Cocaine use disorder: Status: Acute (3) Routine history and physical examination of adult: Status: Acute DS: Medications Discharge Medications Home Medications: Home Medications Medication Instructions Recorded Confirmed benztropine 1 mg tablet 1 mg PO BID 09/20/22 09/20/22 divalproex 500 mg tablet,delayed 500 mg PO BID 09/20/22 09/20/22 release nicotine (polacrilex) 4 mg gum 4 mg buccal Q2H PRN Nicotine 09/20/22 09/20/22 Cravings nicotine 21 mg/24 hr daily 1 patch transdermal DAILY 09/20/22 09/20/22 transdermal patch risperidone 1 mg tablet 1 mg PO BEDTIME 09/20/22 09/20/22 Mental Status Exam Mental Status Exam Narrative: Pt is alert and oriented; behavior is cooperative, friendly and calm; patient is not in distress; dressed in casual attire, well groomed, clean shaven, good hygiene; mood is described as ok and affect congruent, more naturally expressive; eye contact appropriate; Speech is normal rate, volume and prosody and not pressured; possibly mild speech impediment present; no psychomotor retardation present; thought process is organized and goal directed; Thought content is on dealing with AH, symptoms and aftercare; otherwise pertinent to relevant topics and and no paranoid ideations; denies any SI/HI. AH remains but lessening and tolerable and it is no longer obvious if pt is internally pre- occupied. Patients insight and judgment are fair. Data Data Completed and Pending Completed studies during hospitalization [Text1]: 09/23/22 09/23/22 09/23/22 08:24 08:24 08:24 Total Bilirubin 0.4 Direct Bilirubin 0.2 AST 17 ALT 31 Alkaline Phosphatase 37 L Ammonia 51 Total Protein 5.9 L Albumin 3.5 Valproic Acid 47.7 L DS: Summary Hospital Course Hospital Course: Patient is a 41-year-old man with history of schizophrenia and crack cocaine addiction presents for paranoid ideations and auditory hallucinations in the face of relapse and, off medications On admission, patient was polite and calm; he reported command auditory curry llucinations to hurt himself and others however he did not want to do these things and wanted to get back on past medication regimen that was effective. Patient remained mostly isolated, internally preoccupied but with good behaviors and impulse control; he had some paranoid thinking as well. However on the Risperdal and Depakote he reported that both AH and paranoid thinking lessened. There was limited prescription history since patient mostly ended up getting medications from hospitalizations; patient said he was on Haldol Decanoate and credit underwriter was able to verify that patient received Haldol dec 50 mg IM on 09/[address] [facility]; Risperdal was titrated to what patient reported was home dose 2 mg b.i.d.. Eventually patient agreed to get on long-acting Invega Sustenna as well which he appreciated as he reports struggling with adherence. Over subsequent days, patient's mood improved, he was out in the milieu, no longer appearing to be internally preoccupied, smiling and with a more naturally expressive affect. Auditory hallucinations remain but they were much less and patient felt there were tolerable. No SI or HI; patient remained appropriate with peers and staff. Initially patient was considered his CSS but decided he felt much more comfortable going back to the [facility] in [place] and interacting with staff there that he finds very supportive. Patient remained in good mood, with lessening psychotic symptoms and steadily progressing towards baseline.? While AH remain he denies any SI or HI and has good insight that AH is simply due to his mind playing tricks on him from psychiatric illness; patient is future oriented. While he remains vulnerable to relapse and dysregulation, these are chronic issues that will not resolve with longer stay on inpatient unit.? He is not in imminent risk for harm to self or others and appropriate to continue treatment in the community. Medications: Received Invega Sustenna 234 mg 1 time dose on 09/25 Next Invega Sustenna dose 156 mg due on 10/02 (discontinued Risperdal PO) Continue Haldol Decanoate 50 mg Q28 days (last received 09/16/22). continue Depakote 500mg BID Continue congentin 1mg BID (says he needs this dose) clonidine 0.1mg Q4h prn anxiety hydrozyzine to 50mg prn Trazodone prn Time spent discussing smoking cessation with patient: 3 to 10 minutes Status at Discharge Functional status at discharge: independent ambulation Overall status at discharge: patient is progressing back to baseline Time Spent with Patient Time attestation: Total time managing care of this patient today ____ minutes. Time spent: Greater than 30 minutes Discharge Plan Discharge Anticipated Discharge Date/Time: 09/26/22 11:30 Patient Disposition: [facility] Discharge Diagnosis: Schizophrenia Referrals: [facility] Psychiatry Referral [Other] - 09/26/22 2:30 pm (Walk-in hours M,W,F 8-5am Thursday12 & 4-8 8-8 [employer] will take Trever directly to the walk in appointment. intake worker left message letting front desk officer know Trever would be arriving. A direct appointment was unable to be made since Trever does not have a primary doctor at this time. ) [facility] Graciela Shearing Shed [employer] (supervisor international reservations) [Other] ([facility] professor of social work will leave a message on Graciela's phone updating her on your upcoming appointments post discharge. ) [facility] Harjit Osborne [Other] - 09/29/22 1:00 pm (Harjit is your temporary embedded case manager (until he gets a permanent one set up for you) and will work with you to find a [facility] as well as to connect with support services in the community. ) [facility] [Other] - 09/26/22 4:00 pm (The [facility]'s is aware you are coming and your discharge summary will be faxed to the supervisor roving, Harjit Paulino to assist with continuity of care. The professor of social work has left a message with Graciela letting her know you are arriving as well. ) Physician,None [Primary Care Provider] - 1 Week Discharge Medications: New haloperidol decanoate 50 mg/mL Solution 50 mg IM Q28D 28 Days Qty: 1 0RF Rx Instructions: Due on 10/13/22 (last received 09/16/22) hydroxyzine HCl 50 mg Tablet 50 mg PO Q6H PRN (Reason: Anxiety) 30 Days Qty: 90 1RF trazodone 50 mg Tablet 50 mg PO BEDTIME MRX1 PRN (Reason: Insomnia) 30 Days Qty: 45 1RF Rx Instructions: may take 1 repeat dose at bedtime as needed Invega Sustenna 156 mg/mL syringe 156 mg IM ONCE 1 Days Qty: 1 0RF Rx Instructions: loading dose; due on 10/02/22 Invega Sustenna 234 mg/1.5 mL syringe 234 mg IM .[id number] 30 Days Qty: 1.5 0RF Rx Instructions: due on 10/30/22 clonidine HCl 0.1 mg tablet 0.1 mg PO Q4H PRN (Reason: anxiety) 30 Days Qty: 90 1RF Continued divalproex 500 mg Tablet,Delayed Release (Dr/Ec) 500 mg PO BID 30 Days Qty: 60 1RF nicotine (polacrilex) 4 mg Gum 4 mg BUCCAL Q2H PRN (Reason: Nicotine Cravings) 30 Days Qty: 100 1RF benztropine 1 mg Tablet 1 mg PO BID 30 Days Qty: 60 1RF nicotine 21 mg/24 hr Patch 24 Hour 1 patch TRANSDERMAL DAILY 28 Days Qty: 28 1RF Discontinued risperidone 1 mg Tablet 1 mg PO BEDTIME Discharge Orders: Discharge Order (Routine); Ordered 09/26/22 Ordered By: Juan Jose Moreno Diet: Regular diet Activity on Discharge: As tolerated Stand Alone Forms: Patient Portal Discharge page Care Plan Goals: Maintain mood and safe behaviors Take medications as prescribed Continue to pursue sobriety Practice coping skills Continue with outpatient providers and reach out to them as needed Health Concerns: Mood stability and behaviors Sobriety Plan of Treatment: Follow up with your PCP, psychiatric provider and other outpatient providers regarding above concerns Take medications as prescribed Assessment: Risk assessment at time of discharge:? Patient was interviewed prior to discharge and found to be fully oriented and without any SI or HI. Patient has insight and demonstrates good judgment in terms of wanting to pursue treatment. Patient is not in imminent risk of harm to self or others and has a safety plan that includes presenting to the closest ER or calling 911 if feeling unsafe.? Patient has been observed closely by nursing and unit staff throughout admission; patient has not engaged in any behaviors that suggest dangerousness to self or others and has demonstrated appropriate behaviors and impulse control
[2022-09-26] MEDS: risperiDONE 2 MG TABLET PO (08:52)
[2022-09-26] MEDS: Divalproex Sodium 500 MG TABLET.DR PO (08:52)
[2022-09-26] MEDS: Benztropine Mesylate 1 MG TABLET PO (08:52)
[2022-09-26] MEDS: Naloxone HCl Nasal TAKE HOME 4 MG SPRAY NOSTRILALT (09:43)
[2022-09-26] MEDS: hydrOXYzine HCL 50 MG TABLET PO (11:09)
[2022-09-26 11:57] LABS: Estimated Average Glucose 114 mg/dL; Hemoglobin A1c % 5.6 %
== END 2022-09-26 11:34 | disposition home or self-care (01) | DRG 885 ==
PROVIDERS: Admitting Provider Psychiatry & Neurology Psychiatry; Visit Provider Psychiatry & Neurology Psychiatry
DX: F25.9 Schizoaffective disorder, unspecified (principal); F14.10 Cocaine abuse, uncomplicated; F17.210 Nicotine dependence, cigarettes, uncomplicated; Z71.6 Tobacco abuse counseling; Z59.02 Unsheltered homelessness; Z79.899 Other long term (current) drug therapy
CPT/HCPCS: 36415; 80076; 80164; 82140; 83036; J2426